=== PATIENT | female | born 1935 | race Caucasian/White ===

== ENCOUNTER 2020-05-14 17:09 | Inpatient (IN) | payer OTHER, MEDICARE ==
[2020-05-14 19:02] LABS: VENOUS BASE EXCESS 2.8 mmol/L (-2-2); VENOUS O2 SATURATION 60.2 % (70-80); VENOUS PCO2 51.1 mmHg (38-52); VENOUS PH 7.374 (7.310-7.410)
[2020-05-14 19:11] LABS: INR 0.84 (0.83-1.09); PROTHROMBIN TIME (PATIENT) 10.4 SEC (9.7-13.0)
[2020-05-14 19:12] LABS: BASO % 0.5 % (0-2.0); EOS % 0.1 % (0-4.5); HEMATOCRIT 44.4 % (32.4-45.2); HEMOGLOBIN 14.8 GM/dL (10.7-15.3); LYMPH % 9.5 % (8-40); MCH 32.4 pg (25.7-33.7); MCHC 33.3 g/dl (32.0-36.0); MEAN CELL VOLUME 97.4 fl (80-96); MEAN PLT VOLUME 8.8 fl (7.5-11.1); MONO % 7.8 % (3.8-10.2); NEUT % 82.1 % (42.8-82.8); PLATELET COUNT 351 K/MM3 (134-434); RBC 4.56 M/mm3 (3.60-5.2)
[2020-05-14 19:14] LABS: ACTIVATED PTT 26.2 SECONDS (25.2-36.5)
[2020-05-14 19:28] LABS: CHLORIDE 99 mmol/L (98-107); SODIUM 137 mmol/L (136-145)
[2020-05-14 19:30] LABS: ANION GAP 9 MMOL/L (8-16); CALCIUM 9.7 mg/dL (8.5-10.1); CO2 29 mmol/L (21-32); GLUCOSE,RANDOM 104 mg/dL (74-106); MAGNESIUM 2.4 mg/dL (1.8-2.4)
[2020-05-14 19:34] LABS: CREATININE 0.7 mg/dL (0.55-1.3); SGOT/AST 31 U/L (15-37); SGPT/ALT 29 U/L (13-61)
[2020-05-14 19:35] LABS: BILIRUBIN,TOTAL 0.4 mg/dL (0.2-1); TOT PROT 7.5 g/dl (6.4-8.2)
[2020-05-14 19:36] LABS: ALK PHOS 103 U/L (45-117)
[2020-05-14 19:39] LABS: N-TERMINAL BNP 438.9 pg/ml (5-450)
[2020-05-14] MEDS ORDERED: ACETAMINOPHEN 1000 MG/100 ML VIAL (NON FORMULARY) IVPB ONE (21:17)
[2020-05-14] MEDS ORDERED: ACETAMINOPHEN INJECTION 100 ML IVPB ONE (21:55)
[2020-05-15] MEDS ORDERED: amLODIPine BESYLATE 5 MG TABLET (FP) PO ONE (02:30)
[2020-05-15] MEDS ORDERED: amLODIPine BESYLATE 5 MG TABLET (FP) ONE ×2 (03:12→09:24)
[2020-05-15 08:10] LABS: BASO % 0.4 % (0-2.0); EOS % 1.2 % (0-4.5); HEMATOCRIT 38.8 % (32.4-45.2); HEMOGLOBIN 13.1 GM/dL (10.7-15.3); LYMPH % 13.8 % (8-40); MCH 32.7 pg (25.7-33.7); MCHC 33.9 g/dl (32.0-36.0); MEAN CELL VOLUME 96.3 fl (80-96); MEAN PLT VOLUME 8.7 fl (7.5-11.1); MONO % 11.8 % (3.8-10.2); NEUT % 72.8 % (42.8-82.8); PLATELET COUNT 330 K/MM3 (134-434); RBC 4.02 M/mm3 (3.60-5.2); RDW 13.9 % (11.6-15.6); WHITE BLOOD COUNT 10.9 K/mm3 (4.0-10.0)
[2020-05-15 08:11] LABS: CHLORIDE 101 mmol/L (98-107); SODIUM 139 mmol/L (136-145)
[2020-05-15 08:16] LABS: ANION GAP 7 MMOL/L (8-16); CALCIUM 8.9 mg/dL (8.5-10.1); CO2 32 mmol/L (21-32); MAGNESIUM 2.6 mg/dL (1.8-2.4)
[2020-05-15 08:17] LABS: GLUCOSE,RANDOM 109 mg/dL (74-106)
[2020-05-15 08:21] LABS: CREATININE 0.6 mg/dL (0.55-1.3); PHOSPHOROUS 3.2 mg/dL (2.5-4.9)
[2020-05-15] MEDS ORDERED: POTASSIUM CHLORIDE TABS 20 MEQ TABLET.ER (FP) PO ONE ×2 (08:41→09:22)
[2020-05-15] MEDS ORDERED: FUROSEMIDE 40 MG TABLET (FP) ONE (09:23)
[2020-05-15] MEDS ORDERED: TIOTROPIUM BROMIDE IH SCH (10:00)
[2020-05-15] MEDS ORDERED: PATIENT'S OWN MEDICATION (NON-FORMULARY) (Ipratropium/Albuterol Sulfate 1 PUFF Inhaler) IH SCH (10:00)
[2020-05-15] MEDS: amLODIPine BESYLATE 2.5 MG TABLET (FP) PO SCH (10:01)
[2020-05-15] MEDS: predniSONE 5 MG TABLET (UD) PO SCH (10:01)
[2020-05-15] MEDS: FUROSEMIDE 40 MG TABLET (FP) PO SCH (10:01)
[2020-05-15] MEDS ORDERED: SODIUM CHLORIDE 500 ML IV ONE (14:45)
[2020-05-15] MEDS ORDERED: LIDOCAINE 5% TOPICAL PATCH ONE (15:15)
[2020-05-15] MEDS: BUDESONIDE/FORMETEROL FUMARATE 80/4.5 mcg INHALER IH SCH ×2 (15:21→23:11)
[2020-05-15] MEDS: TIOTROPIUM BROMIDE 2.5 MCG (SPIRIVA) RESPIMAT INHALER IH SCH (15:21)
[2020-05-15] MEDS: LIDOCAINE 5% TOPICAL PATCH TP SCH (15:30)
[2020-05-15] MEDS: LIDOCAINE PATCH REMOVAL MC SCH (23:11)
[2020-05-15 23:44] VITALS: BMI 21.1
[2020-05-16] MEDS ORDERED: MELATONIN 5 MG TABLETS PO ONE (00:24)
[2020-05-16] MEDS: ACETAMINOPHEN 325 MG TABLET (FP) PO PRN ×2 (00:31→21:39)
[2020-05-16 07:43] LABS: HEMATOCRIT 39.2 % (32.4-45.2); HEMOGLOBIN 13.3 GM/dL (10.7-15.3); MCH 32.8 pg (25.7-33.7); MEAN CELL VOLUME 96.5 fl (80-96); MEAN PLT VOLUME 8.3 fl (7.5-11.1); PLATELET COUNT 334 K/MM3 (134-434); RBC 4.07 M/mm3 (3.60-5.2); RDW 13.5 % (11.6-15.6); WHITE BLOOD COUNT 10.1 K/mm3 (4.0-10.0)
[2020-05-16 08:11] LABS: ALBUMIN 3.3 g/dl (3.4-5.0); BLOOD UREA NITROGEN 17.7 mg/dL (7-18); CALCIUM 9.1 mg/dL (8.5-10.1); MAGNESIUM 2.5 mg/dL (1.8-2.4)
[2020-05-16 08:15] LABS: CREATININE 0.8 mg/dL (0.55-1.3); PHOSPHOROUS 4.2 mg/dL (2.5-4.9)
[2020-05-16 08:16] LABS: BILIRUBIN,TOTAL 0.5 mg/dL (0.2-1); TOT PROT 6.2 g/dl (6.4-8.2)
[2020-05-16] MEDS: TIOTROPIUM BROMIDE 2.5 MCG (SPIRIVA) RESPIMAT INHALER IH SCH (09:57)
[2020-05-16] MEDS: BUDESONIDE/FORMETEROL FUMARATE 80/4.5 mcg INHALER IH SCH ×2 (09:57→21:16)
[2020-05-16] MEDS ORDERED: PATIENT'S OWN MEDICATION (NON-FORMULARY) (Tiotropium Bromide [Spiriva] 18 MCG Cap.W.Dev) IH SCH (10:00)
[2020-05-16] MEDS: predniSONE 5 MG TABLET (UD) PO SCH (10:19)
[2020-05-16] MEDS: amLODIPine BESYLATE 2.5 MG TABLET (FP) PO SCH (10:20)
[2020-05-16] MEDS: FUROSEMIDE 40 MG TABLET (FP) PO SCH (10:20)
[2020-05-16] MEDS: LIDOCAINE 5% TOPICAL PATCH TP SCH (10:21)
[2020-05-16] MEDS: LIDOCAINE PATCH REMOVAL MC SCH (21:19)
[2020-05-16] MEDS: ZOLPIDEM TARTRATE 5 MG TABLET PO PRN (21:40)
[2020-05-17] MEDS ORDERED: PT OWN MED DRAWER 7, Y5N ONE (09:07)
[2020-05-17] MEDS: predniSONE 5 MG TABLET (UD) PO SCH (09:14)
[2020-05-17] MEDS: FUROSEMIDE 40 MG TABLET (FP) PO SCH (09:14)
[2020-05-17] MEDS: LIDOCAINE 5% TOPICAL PATCH TP SCH ×2 (09:15→09:20)
[2020-05-17] MEDS: TIOTROPIUM BROMIDE 2.5 MCG (SPIRIVA) RESPIMAT INHALER IH SCH (09:16)
[2020-05-17] MEDS: amLODIPine BESYLATE 2.5 MG TABLET (FP) PO SCH (09:16)
[2020-05-17] MEDS: BUDESONIDE/FORMETEROL FUMARATE 80/4.5 mcg INHALER IH SCH ×2 (09:16→21:25)
[2020-05-17] MEDS: ENOXAPARIN NA (PORCINE) 40 MG/0.4 ML DISP.SYRIN SQ SCH (16:54)
[2020-05-17] MEDS: LIDOCAINE PATCH REMOVAL MC SCH (21:25)
[2020-05-17] MEDS: ZOLPIDEM TARTRATE 5 MG TABLET PO PRN (21:26)
[2020-05-17] MEDS: ACETAMINOPHEN 325 MG TABLET (FP) PO PRN (21:26)
[2020-05-18 07:33] LABS: HEMATOCRIT 37.9 % (32.4-45.2); HEMOGLOBIN 12.9 GM/dL (10.7-15.3); MEAN PLT VOLUME 8.4 fl (7.5-11.1); PLATELET COUNT 293 K/MM3 (134-434); RBC 3.91 M/mm3 (3.60-5.2); RDW 13.4 % (11.6-15.6); WHITE BLOOD COUNT 10.1 K/mm3 (4.0-10.0)
[2020-05-18 07:41] LABS: BLOOD UREA NITROGEN 18.6 mg/dL (7-18); CALCIUM 8.7 mg/dL (8.5-10.1); MAGNESIUM 2.4 mg/dL (1.8-2.4)
[2020-05-18 07:45] LABS: CREATININE 0.8 mg/dL (0.55-1.3); PHOSPHOROUS 3.4 mg/dL (2.5-4.9)
[2020-05-18] MEDS: ENOXAPARIN NA (PORCINE) 40 MG/0.4 ML DISP.SYRIN SQ SCH (09:56)
[2020-05-18] MEDS: amLODIPine BESYLATE 2.5 MG TABLET (FP) PO SCH (09:58)
[2020-05-18] MEDS: predniSONE 5 MG TABLET (UD) PO SCH (09:59)
[2020-05-18] MEDS: FUROSEMIDE 40 MG TABLET (FP) PO SCH (09:59)
[2020-05-18] MEDS: LIDOCAINE 5% TOPICAL PATCH TP SCH (10:00)
[2020-05-18] MEDS: TIOTROPIUM BROMIDE 2.5 MCG (SPIRIVA) RESPIMAT INHALER IH SCH (10:01)
[2020-05-18] MEDS: BUDESONIDE/FORMETEROL FUMARATE 80/4.5 mcg INHALER IH SCH (10:01)
[2020-05-18 19:01] VITALS: BP 147/75; PULSE 85; TEMP 97.9
== END 2020-05-18 20:18 | disposition home or self-care (01) | DRG 199 ==
LOC: JER 17:09 → JERBED 19:24 → J4W 05-15 22:53
PROVIDERS: ADMIT Internal Medicine; ATTEND Internal Medicine
PROC: 0W9930Z Drainage of Right Pleural Cavity with Drainage Device, Percutaneous Approach (ICD-10-PCS; principal; 2020-05-15)
DX: J93.9 Pneumothorax, unspecified (principal); J96.01 Acute respiratory failure with hypoxia; R64 Cachexia; J44.9 Chronic obstructive pulmonary disease, unspecified; I10 Essential (primary) hypertension; R07.9 Chest pain, unspecified; Z68.21 Body mass index [BMI] 21.0-21.9, adult
CPT/HCPCS: 32557; 36415; 71045-TC-FY; 71046-TC-FY; 71250-TC; 80048; 80053; 82550; 82803; 83735; 83880; 84100; 84484; 85025; 85027; 85610; 85730; 86850; 86900; 86901; 93005; 93010; 94010; 99285-25; C1729; C1769; C9803; J0131; U0003; U0005